=== PATIENT | female | born 1995 | race Caucasian/White ===

== ENCOUNTER 2018-03-12 00:19 | Emergency (ER) | payer OTHER ==
--- NOTE | 2018-03-12 02:21 | RADIOLOGY REPORT (SQ) ---
EXAM DESCRIPTION: XR ANKLE 3 OR MORE VIEWS COMPLETED DATE/TME: 03/12/2018 01:40 CLINICAL HISTORY: 22 years, Female, pain, swelling COMPARISON: None. NUMBER OF VIEWS: 3 TECHNIQUE: 3 view left ankle LIMITATIONS: None. FINDINGS: Negative for acute fracture or dislocation. Ankle mortise is intact. Mild soft tissue swelling IMPRESSION: No acute osseous abnormality copyright 2010 [employer]- All Rights Reserved
[2018-03-12] MEDS ORDERED: IBUPROFEN 600 MG TABLET PO ONE (03:19)
--- NOTE | 2018-03-12 03:20 | ER Document Report ---
ED General - General Chief Complaint: Ankle Pain Stated Complaint: ANKLE PAIN Time Seen by Provider: 03/12/18 01:40 Notes: Patient is a 22-year-old female with a past medical history of ligamentous injury to the left ankle in the remote past who presents with pain and swelling to her lateral malleolus that has been ongoing since she [place] her ankle [place] park several hours ago. Describes a dull, throbbing, constant pain to the area. Nothing improves the pain, attempting to walk on it worsens the pain. States this does feel somewhat similar to when she injured a ligament years ago. Denies any other injuries today. Has not seen her primary doctor regarding today's concerns. TRAVEL OUTSIDE OF THE [place] IN LAST 30 DAYS: No Past Medical History - General Information source: Patient - Social History Smoking Status: Never Smoker Frequency of alcohol use: None Drug Abuse: None Lives with: Parents Family History: Reviewed & Not Pertinent Patient has suicidal ideation: No Patient has homicidal ideation: No Renal/ Medical History: Denies: Hx Peritoneal Dialysis Review of Systems - Review of Systems Notes: Constitutional: Negative for fever. Eyes: Negative for visual changes. ENT: Negative for facial injury Cardiovascular: Negative for chest injury. Respiratory: Negative for shortness of breath. Gastrointestinal: Negative for abdominal injury. Genitourinary: Negative for genital injury Musculoskeletal: Positive for left ankle injury Skin: Negative for laceration/abrasions. Neurological: Negative for head injury. Physical Exam - Vital signs Vitals: Temp Pulse Resp BP Pulse Ox 98.1 F 82 18 136/67 H 100 03/12/18 00:46 03/12/18 00:46 03/12/18 00:46 03/12/18 00:46 03/12/18 00:46 Notes: PHYSICAL EXAMINATION: GENERAL: Well-appearing, well-nourished and in no acute distress. HEAD: Atraumatic, normocephalic. EYES: sclera anicteric, conjunctiva are normal. ENT: Moist mucous membranes. NECK: Normal range of motion LUNGS: Normal work of breathing HEART: 2+ DP pulses bilaterally. EXTREMITIES: Mild swelling to the left ankle most prominent over the lateral malleolus. Pain on palpation of the lateral malleolus on the left. Full range of motion intact at the left ankle with dorsi and plantar flexion. Eversion and inversion intact. NEUROLOGICAL: No focal neurological deficits. Moves all extremities spontaneo usly and on command. PSYCH: Normal mood, normal affect. SKIN: Warm, Dry, normal turgor, no rashes or lesions noted. Course - Re-evaluation Re-evalutation: 03/12/18 03:18 No evidence of a septic joint, gout flare, dislocation, or fracture on exam and imaging. Vitals wnl. At this time, I do not see an indication for labs or furthe r imaging. Most consistent with likely ligamentous injury. Will discharge with conservative measures, return precautions, and follow-up recommendations. - Vital Signs Vital signs: Temp Pulse Resp BP Pulse Ox 98.1 F 82 18 136/67 H 100 03/12/18 00:46 03/12/18 00:46 03/12/18 00:46 03/12/18 00:46 03/12/18 00:46 - Diagnostic Test Radiology reviewed: Image reviewed, Reports reviewed Radiology results interpreted by me: 03/12/18 03:19 Left ankle x-ray: No acute fracture or dislocation Discharge - Discharge Clinical Impression: Left ankle injury Qualifiers: Encounter type: initial encounter Qualified Code(s): S99.912A - Unspecified injury of left ankle, initial encounter Condition: Good Disposition: HOME, SELF-CARE Additional Instructions: Your x-ray does not show any acute fracture today. You likely have a ligamentous strain. You should continue to take anti-inflammatories such as ibuprofen 600 mg every 6 hours. Continue to apply ice to the area is much your able. Please follow-up with your primary care physician if you do not have improving your symptoms in the next 1-2 weeks. Please return immediately if you develop weakness, numbness, spreading redness from the area, or any other symptoms that are concerning to you.
[2018-03-12 03:50] VITALS: BP 129/84
== END 2018-03-12 03:49 | disposition home or self-care (01) ==
LOC: ER 00:19
DX: S99.912A Unspecified injury of left ankle, initial encounter (principal); M25.572 Pain in left ankle and joints of left foot; M25.472 Effusion, left ankle; X50.9XXA Other and unspecified overexertion or strenuous movements or postures, initial encounter; Y92.838 Other recreation area as the place of occurrence of the external cause
CPT/HCPCS: 99283